=== PATIENT | female | born 1955 | race Two or more races ===

== ENCOUNTER → 2017-09-02 | Outpatient (CLI) | payer MEDICARE, OTHER | END | disposition home or self-care (01) | LOC: US 07:58 | DX: K21.9 Gastro-esophageal reflux disease without esophagitis (principal) | CPT/HCPCS: 93970 ==

== ENCOUNTER → 2017-10-31 | Day surgery (SDC) | payer OTHER ==
[~2017-10-31] MED LIST: LIDOCAINE 1% PF 2 ML VIAL. ID; LIDOCAINE 2% 100 MG/5 ML SYRINGE.; ONDANSETRON PF 4 MG/2 ML VIAL. IV; PROCHLORPERAZINE 10 MG/2 ML VIAL. IV; PROPOFOL 20 ML IV; fentaNYL PF VIAL 100 MCG/2 ML VIAL IV
[2017-10-31 07:58] LABS: POC GLUCOSE 167 mg/dL (70-99)
[2017-10-31] MEDS: IV RINGERS,LACTATED 1000ML 1,000 ML IV (08:00)
== END ==
LOC: ENDOS 07:20
DX: K57.30 Diverticulosis of large intestine without perforation or abscess without bleeding (principal); K64.0 First degree hemorrhoids; F41.9 Anxiety disorder, unspecified; F32.9 Major depressive disorder, single episode, unspecified; E11.9 Type 2 diabetes mellitus without complications
CPT/HCPCS: 45378; 82962; J2704

== ENCOUNTER → 2018-08-11 | Outpatient (CLI) | payer MEDICARE, OTHER ==
[2017-10-31 09:35] VITALS: BP 99/70
[~2018-08-11] MED LIST changes: +ACET500T68 PO; +BUSP30TA PO; +INSU300I SQ; -LIDOCAINE 1% PF 2 ML VIAL. ID; -LIDOCAINE 2% 100 MG/5 ML SYRINGE.; -ONDANSETRON PF 4 MG/2 ML VIAL. IV; +POLY17PO29 PO; -PROCHLORPERAZINE 10 MG/2 ML VIAL. IV; -PROPOFOL 20 ML IV; +SENN-80 PO; +VENL150C6 PO; -fentaNYL PF VIAL 100 MCG/2 ML VIAL IV
--- NOTE | 2018-08-11 12:03 | KCIC ---
MRI Lumbar Spine without contrast History: Right sciatica, incontinence of feces, chronic low back pain, bilateral lower extremity numbness Technique: Multiplanar, multi sequential noncontrast MR imaging was performed of the lumbar spine. Comparison: None Findings: There is mild motion. Lumbar vertebral body stature is maintained. There is negligible posterior subluxation L3 relative to L4 and L2 relative to L3. Conus terminates at L1. There is ldtm-bf-dywdblru degenerative disc disease L5-S1, minimally at L2-3 and mild disc desiccation L3-4 and L1-2. Mild edema of the anterior superior corners of L3 and L2 is likely reactive/degenerative in etiology. T12-L1: Neural foramina and spinal canal are adequate. L1-L2: There is very minimal disc osteophyte complex and bulge more eccentric to the lateral recesses bilaterally, spinal canal overall adequate. Neural foramina are adequate. L2-L3: There is minimal disc osteophyte complex and bulge. There is mild indentation upon the ventral thecal sac greater in the far lateral recesses bilaterally right greater than left, very mild narrowing of the far right lateral recess. Neural foramina are adequate. L3-L4: There is a minimal disc osteophyte complex. There is minimal buckling of the ligamentum flavum. There is mild narrowing of the far lateral recesses bilaterally. Neural foramina are adequate. There is small hemangioma of the right posterior L3 vertebral body. L4-L5: There is negligible disc osteophyte complex. There is mild facet hypertrophic change and buckling of the ligamentum flavum flavum. Neural foramina and spinal canal are overall adequate. L5-S1: There is very minimal disc osteophyte complex and bulge, contact of the descending left S1 nerve root without significant posterior displacement. Spinal canal is overall adequate. There is mild narrowing of the left neural foramen, right neural foramen adequate. Impression: 1. There is mild narrowing of the far lateral recesses bilaterally at L3-4, also disc osteophyte complex and bulge at L5-S1 contacting the descending left S1 nerve root without displacement. There is negligible posterior subluxation of L3 relative to L4 and L2 relative to L3. There is mild narrowing of the left L5-S1 neural foramen. There is chwy-od-xifeqrgj degenerative disc disease L5-S1, minimally at more superior levels. Electronically signed by: Russ Bunn MD (08/11/2018 11:59 AM) [id number]
--- NOTE | 2018-08-11 12:12 | KCIC ---
Bilateral digital screening mammograms: Reason for examination: Routine screening. New baseline./ Interpretation was made with the benefit of CAD. The skin and nipples show no abnormalities. No abnormal axillary lymph nodes are seen. The breast parenchyma shows scattered fibroglandular density. (Breast density: Category B.) There is a subtle nodule present at the 2:00 B position of the left breast. Further evaluation with coned compression views and ultrasound is recommended. There are no other dominant masses, suspicious calcifications or architectural distortions. Some benign calcifications are present. Impression: Subtle nodular density at the 2:00 B position of the left breast measuring approximately 1 cm in size and located approximately 8 cm from the nipple. Recommend further evaluation with coned compression views and ultrasound. BI-RADS Category 0: Incomplete. Needs additional imaging evaluation. "Our facility is accredited by the [employer] Mammography Program." This patient's information has been entered into a reminder system for the patient to be notified with the results of her examination and a target date for the next mammogram. Electronically signed by: Ana Bobo MD (08/11/2018 12:08 PM) [id number]
== END | disposition home or self-care (01) ==
LOC: KCIC MAMMO 10:36
PROVIDERS: ATTEND Family Medicine
DX: Z12.31 Encounter for screening mammogram for malignant neoplasm of breast (principal); M51.17 Intervertebral disc disorders with radiculopathy, lumbosacral region; M25.78 Osteophyte, vertebrae; D18.09 Hemangioma of other sites
CPT/HCPCS: 72148; 77067

== ENCOUNTER → 2018-08-25 | Outpatient (CLI) | payer MEDICARE ==
[2017-10-31 09:35] VITALS: BP 99/70
--- NOTE | 2018-08-25 14:29 | KCIC ---
Left breast diagnostic digital mammograms: Reason for examination: Nodule on screening mammogram. Comparison is made to mammographic exam dated 08/11/2018. Coned compression views were obtained with attention to the upper outer quadrant. The area of nodularity does not appears discrete on the additional cone compression views. Further evaluation however with ultrasound will follow. IMPRESSION: No gross or suspicious abnormality seen at the additional views. Ultrasound to follow. BI-RADS Category 0: Incomplete. Needs additional imaging evaluation. Left breast ultrasound: Ultrasound examination of the left breast was performed with attention to the area of mammographic concern and the left axilla. In the 2:00 position 8.5 cm from the nipple, there is a small 6 mm hypoechoic nodule with indistinct margins. Further evaluation with biopsy is recommended. IMPRESSION: 6 mm nodule at the 2:00 position corresponds to the area of mammographic concern. Recommend ultrasound-guided biopsy. BI-RADS Category 4: Suspicious. These findings have been discussed with the patient and the patient's physician medical record librarian, Desiree, was notified about these findings on 08/25/2018 at 2:20 PM. "Our facility is accredited by the [employer] Mammography Program." This patient's information has been entered into a reminder system for the patient to be notified with the results of her examination and a target date for the next mammogram. Electronically signed by: Ana Bobo MD (08/25/2018 2:25 PM) [id number]
--- NOTE | 2018-08-25 14:29 | KCIC ---
Left breast diagnostic digital mammograms: Reason for examination: Nodule on screening mammogram. Comparison is made to mammographic exam dated 08/11/2018. Coned compression views were obtained with attention to the upper outer quadrant. The area of nodularity does not appears discrete on the additional cone compression views. Further evaluation however with ultrasound will follow. IMPRESSION: No gross or suspicious abnormality seen at the additional views. Ultrasound to follow. BI-RADS Category 0: Incomplete. Needs additional imaging evaluation. Left breast ultrasound: Ultrasound examination of the left breast was performed with attention to the area of mammographic concern and the left axilla. In the 2:00 position 8.5 cm from the nipple, there is a small 6 mm hypoechoic nodule with indistinct margins. Further evaluation with biopsy is recommended. IMPRESSION: 6 mm nodule at the 2:00 position corresponds to the area of mammographic concern. Recommend ultrasound-guided biopsy. BI-RADS Category 4: Suspicious. These findings have been discussed with the patient and the patient's physician medical detail representative, Desiree, was notified about these findings on 08/25/2018 at 2:20 PM. "Our facility is accredited by the [employer] Mammography Program." This patient's information has been entered into a reminder system for the patient to be notified with the results of her examination and a target date for the next mammogram. Electronically signed by: Ana Bobo MD (08/25/2018 2:25 PM) [id number]
== END | disposition home or self-care (01) ==
LOC: KCIC MAMMO 09:45
PROVIDERS: ATTEND Family Medicine
DX: N63.21 Unspecified lump in the left breast, upper outer quadrant (principal)
CPT/HCPCS: 76641; 77065

== ENCOUNTER → 2018-09-16 | Outpatient (CLI) | payer MEDICARE ==
[2017-10-31 09:35] VITALS: BP 99/70
[~2018-09-16] MED LIST changes: +LIDOCAINE 1%/EPI 1:100,000 20 ML VIAL. INJ ONE
--- NOTE | 2018-09-17 17:07 | PATHOLOGY ---
[facility] Accession Number: [id number] . 01 Material submitted: . LEFT BREAST MASS . 01 Clinical history: . Left breast mass 2:00 8.5cfn (6mm size) . 02 Diagnosis: Breast tissue, left breast mass 2:00 needle biopsies: - Florid ductal epithelial hyperplasia, focal. - Stromal fibrosis. - Adenosis, focal. (JPM:construction cost estimator; 09/17/2018) MBR/09/17/2018 . 02 Comment: There is no atypia or evidence of malignancy. (JPM:construction cost estimator; 09/17/2018) . 02 Electronically signed: . Murray Javier MD, Pathologist NPI- [id number] . 01 Gross description: . The specimen is received in formalin, labeled "Marta Ronquillo, left breast" and consists of multiple needle cores of yellow-shukla tissue measuring between 0.1 cm and 2.4 cm in length and ranging from 0.1-0.2 cm in diameter. They are entirely submitted in A1-A3. (A3 aggregate of the smaller fragments/cores). The cold ischemic time is 5 minutes and the total formalin fixation time is greater than 6 hours but less than 72 hours. (SDY; 09/16/2018) SYU/SYU . 02 Pathologist provided ICD-10: N60.32, N60.22, N62 . 02 CPT . 331250 Specimen Comment: A courtesy copy of this report has been sent to Specimen Comment: [phone], , . Specimen Comment: Report sent to ,DR MODI / DR CASAS Specimen Comment: A duplicate report has been generated due to demographic updates. Performed at: 01 [facility] [address] [facility] [address], [place] [id number] MD Mike Londono MD Phone: [phone] Performed at: 02 [facility] [address] [place], [place] [id number] MD Murray Javier MD Phone: [phone]
--- NOTE | 2018-09-22 10:07 | RAD ---
Ultrasound-guided left breast biopsy, 09/16/2018: History: Suspicious breast nodule Previous imaging demonstrated a faint suspicious hypoechoic nodule at the 2:00 location in the left breast. Under local anesthesia, aseptic conditions and sonographic guidance the [employer] biopsy instrument was passed into this process via a lateral approach. Multiple 12-gauge vacuum-assisted core central obtained and sent to pathology for evaluation. A biopsy marker was then deposited at the biopsy site. The biopsy instrument was removed and hemostasis obtained. Two-view postprocedural digital mammograms were then obtained to document position of the biopsy marker. It lies along the lateral margin of the biopsy site. The patient tolerated the procedure well and left the department in good condition. The subsequent pathology report indicated the presence of stromal fibrosis and ductal epithelial hyperplasia without evidence of malignancy. Mammographic and sonographic follow-up in 6 months is suggested. BI-RADS 3-probably benign findings
== END | disposition home or self-care (01) ==
LOC: US 13:28
PROVIDERS: ATTEND Surgery
DX: N60.32 Fibrosclerosis of left breast (principal); N60.22 Fibroadenosis of left breast; E11.9 Type 2 diabetes mellitus without complications; Z98.51 Tubal ligation status; Z88.5 Allergy status to narcotic agent; Z79.84 Long term (current) use of oral hypoglycemic drugs; Z79.899 Other long term (current) drug therapy
CPT/HCPCS: 19083; 77065; 88305; C1713; 19081; 76942

== ENCOUNTER 2019-03-22 09:57 | Emergency (ER) | payer MEDICARE, MEDICAID ==
[~2019-03-22] VITALS: Ht 175.3 cm; Wt 81.6 kg
[~2019-03-22 09:57] MED LIST changes: -LIDOCAINE 1%/EPI 1:100,000 20 ML VIAL. INJ ONE
[2019-03-22 10:15] VITALS: BP 153/81
[2019-03-22] MEDS ORDERED: ORPH100T PO (10:36)
--- NOTE | 2019-03-22 10:36 | PHYS DOC ---
Past Medical History Past Medical History: Diabetes-Type II, Other Additional Past Medical Histor: BULGING DISC Past Surgical History: Tubal ligation, Other Additional Past Surgical Histo: WISDOM TEETH EXTRACTED Alcohol Use: None Drug Use: None Adult General Chief Complaint Chief Complaint: BACK PAIN - NO INJURY HPI HPI Patient is a 63 year old female that presents with back pain that radiates down the right leg that has been ongoing for several days. The patient states she's been taking ibuprofen home has not been helping. She rates her pain as 10 out of 10 in severity and sharp in nature. Denies any falls or trauma. Review of Systems Review of Systems Constitutional: Denies fever or chills [] Eyes: Denies change in visual acuity, redness, or eye pain [] HENT: Denies nasal congestion or sore throat [] Respiratory: Denies cough or shortness of breath [] Cardiovascular: No additional information not addressed in HPI [] GI: Denies abdominal pain, nausea, vomiting, bloody stools or diarrhea [] : Denies dysuria or hematuria [] Musculoskeletal: Reports R sided back pain. Integument: Denies rash or skin lesions [] Neurologic: Denies headache, focal weakness or sensory changes [] Endocrine: Denies polyuria or polydipsia [] Complete systems were reviewed and found to be within normal limits, except as documented in this note. Allergies Allergies Allergies Coded Allergies Type Severity Reaction Last Updated Verified codeine Adverse Reaction Intermediate HEADACHE 10/31/17 Yes Physical Exam Physical Exam Constitutional: Well developed, well nourished, no acute distress, non-toxic appearance. [] HENT: Normocephalic, atraumatic, bilateral external ears normal, oropharynx moist, no oral exudates, nose normal. [] Eyes: PERRLA, EOMI, conjunctiva normal, no discharge. [] Neck: Normal range of motion, no tenderness, supple, no stridor. [] Cardiovascular:Heart rate regular rhythm, no murmur [] Lungs & Thorax: Bilateral breath sounds clear to auscultation [] Abdomen: Bowel sounds normal, soft, no tenderness, no masses, no pulsatile masses. [] Skin: Warm, dry, no erythema, no rash. [] Back: Tenderness to R side of back. Extremities: No tenderness, no cyanosis, no clubbing, ROM intact, no edema. [] Neurologic: Alert and oriented X 3, normal motor function, normal sensory function, no focal deficits noted. [] Psychologic: Affect normal, judgement normal, mood normal. [] Current Patient Data Vital Signs Vital Signs Date Time Temp Pulse Resp B/P (MAP) Pulse Ox O2 Delivery O2 Flow Rate FiO2 03/22/19 10:15 98.3 99 17 153/81 (105) 95 Room Air 98.3 EKG EKG [] Radiology/Procedures Radiology/Procedures [] Course & Med Decision Making Course & Med Decision Making Pertinent Labs and Imaging studies reviewed. (See chart for details) The patient drove to hospital and took Ibuprofen before arrival. Will write a script for muscle relaxers to take at home. Dragon Disclaimer OMGPOPon Disclaimer This electronic medical record was generated, in whole or in part, using a voice recognition dictation system. Departure Departure Impression: Primary Impression: Back pain with sciatica Disposition: HOME, SELF-CARE Condition: STABLE Referrals: JO-ANN CASAS MD (PCP) Patient Instructions: Sciatica Additional Instructions: Thank you for visiting [facility]. We appreciate you trusting us with your care. If any additional problems come up don't hesitate to return to visit us. Please follow up with your primary care provider so they can plan additional care if needed and know about the problem that you had. If symptoms worsen come back to the Emergency Department. Any concerning symptoms that start such as chest pain, shortness of air, weakness or numbness on one side of the body, running high fevers or any other concerning symptoms return to the ER. Please fill your medications at any pharmacy and follow the prescription instructions. Scripts Orphenadrine Citrate (ORPHENADRINE CITRATE) 100 Mg Tablet.er 1 TAB PO BID PRN for MUSCLE PAIN, #20 TAB Prov: SANDEEP PELAYO APRN 03/22/19 SANDEEP PELAYO APRN Mar 22, 2019 10:36
== END 2019-03-22 10:44 | disposition home or self-care (01) ==
LOC: ER 09:57
DX: M54.41 Lumbago with sciatica, right side (principal); E11.9 Type 2 diabetes mellitus without complications; Z98.51 Tubal ligation status; Z88.5 Allergy status to narcotic agent
CPT/HCPCS: 99283

== ENCOUNTER → 2019-05-07 | Outpatient (CLI) | payer MEDICARE, MEDICAID ==
[~2019-05-07] MED LIST changes: +ORPH100T PO
--- NOTE | 2019-05-07 14:12 | KCIC ---
Left breast diagnostic digital mammograms: Reason for examination: Follow-up biopsy. Comparison is made to previous previous studies dated 08/11/2018 and 09/16/2018. Interpretation was made with the benefit of CAD. The skin and nipples show no abnormalities. No abnormal axillary lymph nodes are seen. The breast parenchyma shows scattered fibroglandular density. (Breast density: Category B.) There are no dominant masses, suspicious calcifications or architectural distortions. Biopsy clip is now present at the 2:00 B position. Impression: No evidence of malignancy. Ultrasound to follow. BI-RADS Category 0: Incomplete. Needs additional imaging evaluation. Left breast ultrasound: Comparison is made to previous study dated 08/25/2018 and 09/16/2018. Ultrasound evaluation was performed in the area of previous biopsy and at the axilla. The lesion seen previously is no longer identified. No abnormal appearing lymph nodes are seen in the axilla. IMPRESSION: No focal abnormality seen in the left breast. Recommend routine mammographic follow-up. BI-RADS Category 2: Benign. "Our facility is accredited by the [employer] Mammography Program." This patient's information has been entered into a reminder system for the patient to be notified with the results of her examination and a target date for the next mammogram. Electronically signed by: Ana Bobo MD (05/07/2019 2:09 PM) [facility]
== END | disposition home or self-care (01) ==
LOC: KCIC MAMMO 12:54
PROVIDERS: ATTEND Family Medicine
DX: R92.8 Other abnormal and inconclusive findings on diagnostic imaging of breast (principal)
CPT/HCPCS: 76641; 77065

== ENCOUNTER → 2020-05-29 | Outpatient (CLI) | payer MEDICARE, MEDICAID ==
[~2020-05-29] MED LIST changes: +SENN-182 PO; -SENN-80 PO
--- NOTE | 2020-05-29 18:13 | KCIC ---
Bilateral digital screening mammograms with 3-D tomosynthesis: Reason for examination: Routine screening. Comparison is made to previous studies dated 05/07/2019 and 08/11/2018. Bilateral mammograms in CC and oblique projections were obtained with 2-D imaging and 3-D tomosynthesis imaging on a Siemens Inspiration unit and reviewed on the workstation. Interpretation was made with the benefit of CAD. The skin and nipples show no abnormalities. No abnormal axillary lymph nodes are seen. The breast parenchyma shows scattered fatty and fibroglandular density. (Breast density: Category B.) There are no dominant masses, suspicious calcifications or architectural distortion. Biopsy clip remains present on the left. Impression: No evidence of malignancy. Recommend routine screening. BI-RAD Category 1: Negative. "Our facility is accredited by the [employer] Mammography Program." This patient's information has been entered into a reminder system for the patient to be notified with the results of her examination and a target date for the next mammogram. Electronically signed by: Ana Bobo MD (05/29/2020 6:10 PM) [id number]
== END ==
LOC: KCIC 13:05
PROVIDERS: ATTEND Family Medicine
DX: Z12.31 Encounter for screening mammogram for malignant neoplasm of breast (principal)
CPT/HCPCS: 77063; 77067

== ENCOUNTER 2021-03-30 10:12 | Emergency (ER) | payer MEDICARE, MEDICAID ==
[~2021-03-30] VITALS: Ht 175.3 cm; Wt 90.9 kg
[2021-03-30 10:24] VITALS: BP 147/70
[2021-03-30] MEDS ORDERED: LIDOCAINE 2%/EPI 1:100,000 20 ML VIAL. INJ ONE (10:30)
[2021-03-30] MEDS ORDERED: DIPH,PERTUSS(ACELL),TET VAC/PF 0.5 ML SYRINGE. VAX IM ONE ×2 (10:38→10:45)
--- NOTE | 2021-03-30 11:21 | RAD ---
EXAM: Head CT without contrast. HISTORY: Fall. TECHNIQUE: Computed tomographic images of the head were obtained without contrast. *One or more of the following individualized dose reduction techniques were utilized for this examina tion: 1. Automated exposure control. 2. Adjustment of the mA and/or kV according to patient size. 3. Use of iterative reconstruction technique. COMPARISON: None. FINDINGS: There is no acute or subacute extra-axial or intraparenchymal hemorrhage. There is no mass effect or midline shift. There is no hydrocephalus. There are areas of decreased attenuation within the cerebral white matter, nonspecific and likely rel ated to chronic small vessel disease. There is cerebral atrophy. There is near complete opacification of the maxillary sinuses due to sinusitis. There is also severe ethmoid and moderate sphenoid sinus mucosal thickening. There is minimal inferior mastoid fluid. Ther e is no suspicious calvarial lesion. IMPRESSION: 1. No acute intracranial finding. 2. Bilateral cerebral white matter changes, likely due to chronic small vessel disease. This is advan fawad for patient age. 3. Mild cerebral atrophy. 4. Paranasal sinus disease. Electronically signed by: Desiree Cazares MD (03/30/2021 11:18 AM) [id number]
--- NOTE | 2021-03-30 11:35 | PHYS DOC ---
Past Medical History Past Medical History: Diabetes-Type II, Other Additional Past Medical Histor: BULGING DISC Past Surgical History: Tubal ligation, Other Additional Past Surgical Histo: WISDOM TEETH EXTRACTED Smoking Status: Former Smoker Alcohol Use: None Drug Use: None General Adult EDM: Chief Complaint: HEAD INJURY/TRAUMA HPI: HPI: Patient is a 65 year old female who present to ER for evaluation of head injury. Patient says yesterday it 8 PM she tripped and fell backward hit the back of her head on the head of her bed. Patient denies any loss of consciousness. Patient denies any neck pain or back pain. Patient is not on blood thinners. Patient denies any nausea vomiting patient is not up-to-date on her tetanus vaccination status.. Review of Systems: Review of Systems: Constitutional: Denies fever or chills. [] Eyes: Denies change in visual acuity. [] HENT: Denies nasal congestion or sore throat. [] Respiratory: Denies cough or shortness of breath. [] Cardiovascular: Denies chest pain or edema. [] GI: Denies abdominal pain, nausea, vomiting, bloody stools or diarrhea. [] : Denies dysuria. [] Musculoskeletal: Denies back pain or joint pain. [] Integument: POSITIVE FOR SCALP LACERATION. Neurologic: Denies headache, focal weakness or sensory changes. [] Endocrine: Denies polyuria or polydipsia. [] Lymphatic: Denies swollen glands. [] Psychiatric: Denies depression or anxiety. [] Heart Score: C/O Chest Pain: N/A Risk Factors: Risk Factors: DM, Current or recent (<one month) smoker, HTN, HLP, family history of CAD, obesity. Risk Scores: Score 0 - 3: 2.5% MACE over next 6 weeks - Discharge Home Score 4 - 6: 20.3% MACE over next 6 weeks - Admit for Clinical Observation Score 7 - 10: 72.7% MACE over next 6 weeks - Early Invasive Strategies Current Medications: Current Medications Medications (Trade) Dose Ordered Sig/Romero Start Time Stop Time Status Last Admin Dose Admin Diphtheria/ Tetanus/Acell Pertussis (ADACEL TDap SYRINGE) 0.5 ml STK-MED ONCE 03/30/21 10:38 03/30/21 10:38 DC Lidocaine/ Epinephrine (LIDOCAINE 2%-EPI 1:100,000 multi-dose) 20 ml 1X ONCE 03/30/21 10:30 03/30/21 10:34 DC 03/30/21 11:03 20 ML Allergies: Allergies: Allergies Coded Allergies Type Severity Reaction Last Updated Verified codeine Adverse Reaction Intermediate HEADACHE 10/31/17 Yes Physical Exam: PE: Constitutional: Well developed, well nourished, no acute distress, non-toxic appearance. [] HENT: Normocephalic, 3 cm laceration on right occipital area, bilateral external ears normal, oropharynx moist, no oral exudates, nose normal. [] Eyes: PERRLA, EOMI, conjunctiva normal, no discharge. [] Neck: Normal range of motion, no tenderness, supple, no stridor. [] Cardiovascular:Heart rate regular rhythm, no murmur [] Lungs & Thorax: Bilateral breath sounds clear to auscultation [] Abdomen: Bowel sounds normal, soft, no tenderness, no masses, no pulsatile masses. [] Skin: Warm, dry, no erythema, no rash. [] Back: No tenderness, no CVA tenderness. [] Extremities: No tenderness, no cyanosis, no clubbing, ROM intact, no edema. [] Neurologic: Alert and oriented X 3, normal motor function, normal sensory function, no focal deficits noted. [] Psychologic: Affect normal, judgement normal, mood normal. [] Current Patient Data: Vital Signs: Vital Signs Date Time Temp Pulse Resp B/P (MAP) Pulse Ox O2 Delivery O2 Flow Rate FiO2 03/30/21 10:24 98.4 102 20 147/70 (105) 96 Room Air 98.4 EKG: EKG: [] Radiology/Procedures: Radiology/Procedures: []* ADDENDUM #1 Addendum: Note is made that the above report is for a different exam. The correct report should state: EXAM: Head CT without contrast. HISTORY: Fall. TECHNIQUE: Computed tomographic images of the head were obtained without contrast. *One or more of the following individualized dose reduction techniques were utilized for this examination: 1. Automated exposure control. 2. Adjustment of the mA and/or kV according to patient size. 3. Use of iterative reconstruction technique. COMPARISON: None. FINDINGS: There is no acute or subacute extra-axial or intraparenchymal hemorrhage. There is no mass effect or midline shift. There is no hydrocephalus. The taylor-white matter differentiation pattern is intact The visualized portions of the orbits, paranasal sinuses and mastoid air cells are unremarkable. No suspicious calvarial lesion is seen. IMPRESSION: No acute intracranial findings. Electronically signed by: Desiree Cazares MD (03/30/2021 11:27 AM) [id number] Laceration Repair: Indication: right occipital area Procedure: The patient was placed in the appropriate position and anesthesia around the area was done with 20 ml of 1 % lidocaine with epi. The area was then cleaned with soap and saline. The laceration was closed with 8 van. Total repaired wound length: 3 cm Other Items: [OTHER ITEMS] The patient tolerated the procedure well. Complications: none. Course & Med Decision Making: Course & Med Decision Making Pertinent Labs and Imaging studies reviewed. (See chart for details) [] Dragon Disclaimer: Dragon Disclaimer: This electronic medical record was generated, in whole or in part, using a voice recognition dictation system. Departure Departure Impression: Primary Impression: Occipital scalp laceration Disposition: 01 HOME / SELF CARE / HOMELESS Condition: STABLE Referrals: ZULLY CHUNG MD (PCP) Follow up with your doctor in 7 days for van removal. Patient Instructions: Laceration Care, Adult Additional Instructions: Thank you for visiting our Emergency Department. We appreciate you trusting us with your care. If any additional problems come up don't hesitate to return to visit us. Please follow up with your primary care provider so they can plan additional care if needed and know about the problem that you had. If symptoms worsen come back to the Emergency Department. Any concerning symptoms that start such as chest pain, shortness of air, weakness or numbness on one side of the body, running high fevers or any other concerning symptoms return to the ER. ROBERTO KEN DO Mar 30, 2021 11:35
== END 2021-03-30 12:23 | disposition home or self-care (01) ==
LOC: ER 10:12
DX: S01.01XA Laceration without foreign body of scalp, initial encounter (principal); E11.9 Type 2 diabetes mellitus without complications; Z87.891 Personal history of nicotine dependence; Z88.5 Allergy status to narcotic agent; W01.190A Fall on same level from slipping, tripping and stumbling with subsequent striking against furniture, initial encounter; Y93.89 Activity, other specified; Y92.89 Other specified places as the place of occurrence of the external cause; Y99.8 Other external cause status
CPT/HCPCS: 12002; 70450; 90471; 90715; 99284; J3490